=== PATIENT | male | born 1955 | race Caucasian/White ===

== ENCOUNTER 2017-10-13 19:32 | Emergency (ER) | payer OTHER ==
[~2017-10-13 19:32] MED LIST: ALBU8I INH; AMLO5 PO; ASPI325T PO; BISO10TA2 PO; BISO1TAB6 PO; BISO5TAB2 PO; FLUO20SO3 PO; HCTZ25 PO; LAMO25 PO; LORA0.5T PO; NALT50TA PO; PROT40TA PO; REME15TA PO; SERO100T PO; SERO50TA4 PO; VENTAER INH; VITATAB25 PO; [UNRECOGNIZED DRUG - CODE] PO
[2017-10-13 19:34] VITALS: BP 168/84; PULSE 67; RESP 16; TEMP 98.6; O2SAT 96
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
[2017-10-13] MEDS ORDERED: CYCL10TA PO (21:29)
[2017-10-13] MEDS ORDERED: GABA100C4 PO (21:36)
[2017-10-13] MEDS ORDERED: DICL1KIT5 TOPICAL (21:36)
[2017-10-13] MEDS ORDERED: AMLO5TAB2 PO (21:36)
[2017-10-13] MEDS ORDERED: FLUO40CA PO (21:36)
[2017-10-13] MEDS ORDERED: PANT40TA3 PO (21:36)
[2017-10-13] MEDS ORDERED: QUET-86 PO (21:36)
[2017-10-13] MEDS ORDERED: BISO10TA5 PO (21:36)
[2017-10-13] MEDS ORDERED: GABA600T PO (21:36)
== END 2017-10-13 22:00 | disposition home or self-care (01) ==
LOC: NEPD 19:32
DX: M25.551 Pain in right hip (principal); M54.31 Sciatica, right side
CPT/HCPCS: 73502; 99283